=== PATIENT | female | born 2000 | race Caucasian/White ===

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

== ENCOUNTER → 2022-06-19 | Outpatient (CLI) | payer OTHER | END | disposition home or self-care (01) | LOC: CARD 13:16 | PROVIDERS: ATTEND Social Worker Clinical | DX: Z51.81 Encounter for therapeutic drug level monitoring (principal); R00.2 Palpitations; Z79.899 Other long term (current) drug therapy ==

== ENCOUNTER 2024-03-18 23:12 | Emergency (ER) | payer OTHER ==
[2024-03-19] MEDS ORDERED: MELOXICAM15 MG PO (01:03)
== END 2024-03-19 01:12 | disposition home or self-care (01) ==
LOC: ED 23:12
DX: S63.502A Unspecified sprain of left wrist, initial encounter (principal); X50.0XXA Overexertion from strenuous movement or load, initial encounter; Y93.89 Activity, other specified; Y92.89 Other specified places as the place of occurrence of the external cause; Y99.8 Other external cause status

== ENCOUNTER 2024-11-11 20:46 | Emergency (ER) | payer OTHER ==
[~2024-11-11] VITALS: Ht 160 cm; Wt 97.5 kg
[~2024-11-11 20:46] MED LIST changes: +MELOXICAM15 MG PO
[2024-11-11] MEDS ORDERED: ABILIFY5 MG PO (20:54)
[2024-11-11] MEDS ORDERED: AMOX-CLAV 875-1 EACH PO (21:12)
[2024-11-11] MEDS ORDERED: Amoxicillin/Clavulanate Pota 875 MG TAB PO ONE (21:15)
[2024-11-11] MEDS ORDERED: Acetaminophen/Hydrocodone 5 MG/325 MG TABLET PO ONE (21:15)
== END 2024-11-11 21:32 | disposition home or self-care (01) ==
LOC: ED 20:46
DX: K04.7 Periapical abscess without sinus (principal); F31.9 Bipolar disorder, unspecified; Z79.899 Other long term (current) drug therapy

== ENCOUNTER 2024-12-18 13:19 | Emergency (ER) | payer OTHER ==
[~2024-12-18] VITALS: Ht 160 cm; Wt 99.8 kg
[~2024-12-18 13:19] MED LIST changes: +ABILIFY5 MG PO; +AMOX-CLAV 875-1 EACH PO
[2024-12-18] MEDS ORDERED: SODIUM CHLORIDE 0.9% 1,000 ML IV ONE (13:45)
[2024-12-18] MEDS ORDERED: Ondansetron Hydrochloride 4 MG/2 ML VIAL IV ONE (13:45)
[2024-12-18 14:28] LABS: BASO # 0.0 10*3/uL (0.0-0.1); BASO % 0.3 % (0.0-1.0); EOS # 0.1 10*3/uL (0.0-0.4); EOS % 0.5 % (1.0-4.0); MEAN CELL VOLUME 89.3 fl (81.0-99.0); MEAN CORPUSCULAR HGB 29.2 pg (27.0-31.0); MEAN PLATELET VOLUME 9.3 fl (9.6-12.3); MONO # 1.0 10*3/uL (0.1-1.0); MONO % 8.6 % (3.0-9.0); NEUT # 7.4 10*3/uL (2.3-7.9); NEUT % 64.1 % (47.0-73.0); NUCLEATED RED BLOOD CELL 0.0 % (0.0-0.0); NUCLEATED RED BLOOD CELL 0.0 10*3/uL (0.0-0.0); PLATELET COUNT AUTOMATED 411 10*3/uL (130-400); RED CELL DISTRI WIDTH 12.6 % (0-14.5)
[2024-12-18 14:40] LABS: BILIRUBIN Negative (Negative); BLOOD Negative (Negative); CLARITY Cloudy (Clear); COLOR Yellow (Yellow); KETONE Negative (Negative); LEUKO ESTERASE Trace (Negative); NITRITE Negative (Negative); PH 6.5 (4.5-8.0); SPECIFIC GRAVITY 1.010 (1.001-1.030); UROBILINOGEN 0.2 E.U./dl (0.0-1.0)
[2024-12-18 14:46] LABS: BUN 8 mg/dl (9-23); CPK 41 U/L (34-171); SGPT/ALT 8 U/L (5-49)
[2024-12-18 14:46] LABS: EPITHELIAL CELLS 21-30
== END 2024-12-18 15:28 | disposition home or self-care (01) ==
LOC: ED 13:19
PROVIDERS: Emergency Medicine
DX: T67.9XXA Effect of heat and light, unspecified, initial encounter (principal); R11.0 Nausea; E66.9 Obesity, unspecified; R42 Dizziness and giddiness; R51.9 Headache, unspecified; Z79.899 Other long term (current) drug therapy; X30.XXXA Exposure to excessive natural heat, initial encounter; Y93.89 Activity, other specified; Y92.89 Other specified places as the place of occurrence of the external cause; Y99.8 Other external cause status